=== PATIENT | male | born 1970 | race Two or more races ===

== ENCOUNTER 2018-02-01 18:42 | Emergency (ER) | payer OTHER ==
[~2018-02-01] VITALS: Ht 175.3 cm; Wt 109.8 kg
== END 2018-02-01 21:08 | disposition home or self-care (01) ==
LOC: ER 18:42
DX: R31.29 Other microscopic hematuria (principal); M54.89 Other dorsalgia; N20.0 Calculus of kidney

== ENCOUNTER 2022-10-24 06:37 | Emergency (ER) | payer OTHER ==
[~2022-10-24] VITALS: Ht 175.3 cm; Wt 106.6 kg
[~2022-10-24 06:37] MED LIST: GILTUSS LIQUID237 M1 PO; JANUMET XR 50-1 EAC1; MICARDIS80 MG; PROTONIX40 M1; PROVENTIL3 ML/2.5 M IH; ZITHROMAX500 MG PO
== END 2022-10-24 13:01 | disposition home or self-care (01) ==
LOC: ER 06:37
DX: N20.1 Calculus of ureter (principal)

== ENCOUNTER → 2022-11-09 | Day surgery (SDC) | payer OTHER ==
[~2022-11-09] VITALS: Ht 175.3 cm; Wt 106.6 kg
[~2022-11-09] MED LIST changes: +CEPHALEXIN500 M1 PO; +PYRIDIUM DS200 MG PO; +TAMS0.4C PO
--- NOTE | 2022-11-09 06:34 | NUR ---
PACIENTE ALERTA Y ORIENTADO X [address] DE LA GARZARA LO ENVIA A ER PARA QUE LO PREPAREN PARA CIRUGIA POR LOCO EN EL [place]. SE LE ENTREGA HOJA A MEDICO DE TURNO.
--- NOTE | 2022-11-09 07:46 | NUR ---
PTE EVALUADO POR EL DR AUSTIN QUIEN ORDENA EL [place]. SE ORIENTA SOBRE EL TX ORDENADO, LO CUAL REFIERE ENTENDER, SE REALIZAN PRUEBAS DE LABORATORIO Y SE ADMINISTRAN MEDICAMENTOS BIANKA ORDEN MEDICA Y SIGUIENDO MEDIDAS ASEPTICAS.
--- NOTE | 2022-11-09 13:09 | NUR ---
PTE EVALUADO POR EL DR GARCIA QUIEN ORDENA LA ADMISION DEL MISMO, SE OIRENTA SOBRE LA MISMA, LO CUAL REFIERE ENTENDER. SE ENTREGA VESTIMENTA A PTE Y SE ORIENTA SOBRE EL USO DE LA MISMA LO CUAL REFIERE ENTENDER. SE COLECTAN PERTENENCIAS DE PTE CON LA ASISTENCIA DE MS L LIT. SE ENTREGAN PERTENENCIAS A MS V BRENNER IDENTIFICADAS Y CON DOCUMENTO EVIDENCIADO.
== END | disposition home or self-care (01) ==
LOC: ER 06:27 → CIR.AMB 12:09 → O/R 12:09 → CIR.AMB 12:09 → SEC-K 12:09 → ER 12:09 → EDSTATUS 13:45 → O/R 14:03 → SEC-K 14:03 → O/R 14:04 → SEC-K 14:11 → O/R 14:11
PROVIDERS: ATTEND Surgery
DX: N20.1 Calculus of ureter (principal); Z20.822 Contact with and (suspected) exposure to COVID-19